=== PATIENT | male | born 2000 | race Caucasian/White ===

== ENCOUNTER 2022-04-21 20:46 | Emergency (ER) | payer SELFPAY ==
--- NOTE | 2022-04-21 21:04 | ED General ---
General Chief Complaint: Overdose Stated Complaint: OD Source of Information: Patient, Other Exam Limitations: No Limitations History of Present Illness Date Seen by Provider: Apr 21, 2022 Time Seen by Provider: 20:59 Initial Comments To ER by private vehicle accompanied by his coworker. He was reported to have notified his coworker after getting out of the pool at around 8:15 PM that he "did something stupid" and overdosed on alcohol, a bottle of ZzzQuil and trazodone. The trazodone is 100 mg tablets and was allegedly full but the bottle was prescribed about a year ago. This was also allegedly a full bottle of ZzzQuil containing 1000 mg APAP/30ml and 50 mg diphenhydramine/30 mL. Time of ingestion 8 PM. Weighs about 100 kg. Patient is alert looking around the room on arrival here but does not speak to us or answer questions other than a brief nod of the head. Coworker who is with him states that they are staying in a hotel, they do [place] work [place] highways. States that he did not indicate to him why he overdosed. Timing/Duration: 1/2 Hour Severity: Moderate Associated Systoms: Denies Symptoms Allergies and Home Medications Patient Home Medication List Home Medication List Reviewed: Yes Review of Systems Review of Systems Constitutional: see HPI EENTM: see HPI Respiratory: no symptoms reported Cardiovascular: no symptoms reported Genitourinary: no symptoms reported Musculoskeletal: no symptoms reported Skin: no symptoms reported Psychiatric/Neurological: No Symptoms Reported Hematologic/Lymphatic: No Symptoms Reported Immunological/Allergic: no symptoms reported Physical Exam Vital Signs Capillary Refill : Height, Weight, BMI Height: '" Weight: lbs. oz. kg; BMI Method: General Appearance: No Apparent Distress, WD/WN, Other (Eyes open, alert, looking around the room. When asked questions he will give a delayed nod of his head either yes or no but does not verbalize anything. Pupils are equal at about 4 mm. Heart rate is 75 sinus. Respiratory rate 13. Oxygen saturation 96% room air. Blood pressure 101/75.) HEENT: PERRL/EOMI, TMs Normal Neck: Full Range of Motion, Normal Inspection Respiratory: No Accessory Muscle Use, No Respiratory Distress Cardiovascular: Regular Rate, Rhythm, Normal Peripheral Pulses Gastrointestinal: Normal Bowel Sounds, Non Tender, Soft Extremity: Normal Capillary Refill, Normal Inspection Neurologic/Psychiatric: Alert Skin: Normal Color, Warm/Dry Progress/Results/Core Measures Suspected Sepsis SIRS Temperature: Pulse: Respiratory Rate: Blood Pressure / Mean: Results/Orders My Orders Orders - ABHAY CAST APRN Ekg Tracing (04/21/22 20:51) Salicylate (04/21/22 20:56) Acetaminophen (04/21/22 20:56) Ethylene Glycol (04/21/22 20:56) Ua Culture If Indicated (04/21/22 20:56) Drug Screen Stat (Urine) (04/21/22 20:56) Ekg Tracing (04/21/22 20:56) Cbc With Automated Diff (04/21/22 20:56) Comprehensive Metabolic Panel (04/21/22 20:56) Protime With Inr (04/21/22 20:56) Ed Iv/Invasive Line Start (04/21/22 20:56) Vital Signs/I&O Capillary Refill : Departure Impression Primary Impression: Overdose Disposition: ADMITTED INPATIENT Condition: Stable Departure-Patient Inst. Referrals: UNKNOWN (PCP/Family) Primary Care Physician Patient Instructions: ALCOHOL AND SUBSTANCE ABUSE ABHAY CAST APRN Apr 21, 2022 21:04
[2022-04-21 21:09] LABS: BASOPHILS # (AUTO) 0.1 10^3/uL (0.0-0.1); BASOPHILS % (AUTO) 1 % (0-10); EOSINOPHILS # (AUTO) 0.2 10^3/uL (0.0-0.3); EOSINOPHILS % (AUTO) 2 % (0-10); HEMATOCRIT 43 % (40-54); HEMOGLOBIN 14.8 g/dL (13.3-17.7); LYMPHOCYTES # (AUTO) 2.2 10^3/uL (1.0-4.0); LYMPHOCYTES % (AUTO) 26 % (12-44); MEAN CORPUSCULAR HEMOGLOBIN 30 pg (25-34); MEAN CORPUSCULAR HGB CONC 35 g/dL (32-36); MEAN CORPUSCULAR VOLUME 87 fL (80-99); MONOCYTES # (AUTO) 0.7 10^3/uL (0.0-1.0); MONOCYTES % (AUTO) 8 % (0-12); NEUTROPHILS # (AUTO) 5.2 10^3/uL (1.8-7.8); NEUTROPHILS % (AUTO) 63 % (42-75); PLATELET COUNT 212 10^3/uL (130-400); WHITE BLOOD COUNT 8.3 10^3/uL (4.3-11.0)
[2022-04-21 21:11] LABS: ALBUMIN 4.6 GM/DL (3.2-4.5); CHLORIDE 103 MMOL/L (98-107); POTASSIUM 3.8 MMOL/L (3.6-5.0); SODIUM 139 MMOL/L (135-145)
[2022-04-21 21:12] LABS: CALCIUM 9.7 MG/DL (8.5-10.1)
[2022-04-21 21:13] LABS: GLUCOSE 80 MG/DL (70-105)
[2022-04-21 21:14] LABS: PROTHROMBIN TIME PATIENT 13.4 SEC (12.2-14.7); TOTAL PROTEIN 7.4 GM/DL (6.4-8.2)
[2022-04-21 21:15] LABS: BILIRUBIN,TOTAL 0.4 MG/DL (0.1-1.0); CARBON DIOXIDE 22 MMOL/L (21-32)
[2022-04-21] MEDS ORDERED: LACTATED RINGERS 1,000 ML IV SCH (21:15)
[2022-04-21 21:17] LABS: ALKALINE PHOSPHATASE 38 U/L (40-136); CREATININE SERUM 1.41 MG/DL (0.60-1.30); GFR ESTIMATED 71
[2022-04-21 21:18] LABS: BUN/CREATININE RATIO 17
[2022-04-21 21:20] LABS: ALANINE AMINOTRANSFERASE 25 U/L (0-55); SALICYLATE < 5.0 MG/DL (5.0-20.0)
[2022-04-21 21:29] LABS: ACETAMINOPHEN 58 UG/ML (10-30)
[2022-04-21 21:36] LABS: BILIRUBIN,URINE NEGATIVE (NEGATIVE); CLARITY,URINE CLEAR; COLOR,URINE YELLOW; GLUCOSE, URINE (UA) NEGATIVE (NEGATIVE); KETONES,URINE NEGATIVE (NEGATIVE); LEUKOCYTE ESTERASE ,URINE NEGATIVE (NEGATIVE); NITRITE,URINE NEGATIVE (NEGATIVE); PROTEIN,URINE NEGATIVE (NEGATIVE)
[2022-04-21 21:42] LABS: BACTERIA,URINE NEGATIVE /HPF
[2022-04-21 21:59] LABS: AMPHETAMINE SCREEN, URINE NEGATIVE (NEGATIVE); BARBITURATE SCREEN URINE NEGATIVE (NEGATIVE); BENZODIAZEPINES SCREEN URINE NEGATIVE (NEGATIVE); CANNABINOID SCREEN, URINE NEGATIVE (NEGATIVE); COCAINE SCREEN URINE NEGATIVE (NEGATIVE); METHADONE STAT NEGATIVE (NEGATIVE); OPIATE SCREEN URINE NEGATIVE (NEGATIVE); OXYCODONE STAT NEGATIVE (NEGATIVE); PROPOXYPHENE STAT NEGATIVE (NEGATIVE); TRICYCLIC ANTIDEPRESSANTS SCRE NEGATIVE (NEGATIVE)
[2022-04-22 09:15] LABS: ALBUMIN 4.1 GM/DL (3.2-4.5)
[2022-04-22 09:18] LABS: TOTAL PROTEIN 6.6 GM/DL (6.4-8.2)
[2022-04-22 09:19] LABS: BILIRUBIN,TOTAL 0.4 MG/DL (0.1-1.0)
[2022-04-22 09:23] LABS: BILIRUBIN,DIRECT 0.2 MG/DL (0.0-0.3); BILIRUBIN,INDIRECT 0.2 MG/DL
[2022-04-23 06:53] VITALS: BP 120/47
== END 2022-04-23 06:56 ==
LOC: ER 20:48
DX: T43.211A Poisoning by selective serotonin and norepinephrine reuptake inhibitors, accidental (unintentional), initial encounter (principal); T45.0X1A Poisoning by antiallergic and antiemetic drugs, accidental (unintentional), initial encounter; T51.91XA Toxic effect of unspecified alcohol, accidental (unintentional), initial encounter; Z28.310 Unvaccinated for COVID-19
CPT/HCPCS: 80053; 80306; 81000; 82693; 83735; 85025; 85610; 93005 ×2; 99284; G0480 ×3; 36415; 80076; 80320; 80329; 87636